=== PATIENT | male | born 1970 ===

== ENCOUNTER 2017-01-23 11:55 | Outpatient (CLI) | payer BC ==
--- NOTE | 2017-01-23 14:13 | Diagnostic Imaging Report ---
Indication: Pain Findings: 3 views of the left wrist were obtained. No acute fractures, malalignment, erosions or periostitis are identified. Bone mineralization is within normal limits. Soft tissues are unremarkable. Impression: Negative examination of the left wrist.
== END 2017-01-23 13:55 | disposition home or self-care (01) ==
LOC: RAD 11:55
DX: M25.532 Pain in left wrist (principal)